=== PATIENT | female | born 1960 | race Caucasian/White ===

== ENCOUNTER → 2018-06-08 | Outpatient (CLI) | payer MEDICARE, OTHER ==
[~2018-06-08] MED LIST: ALBU90OI INH; ALBU90OI6 INH; AMLO5 PO; ASCO500 PO; BENADRYL25 MG PO; Bactrim Ds Tab1 EACH PO; CERAVE MOISTUR; CHOL10002 PO; COLLP MISC; DILT180 PO; DIPATR PO; DIPH50 PO; ESTROVEN ENER PO; FEXO60 PO; FEXPSEER PO; Flovent Disku250 MCG IH; Iron Supplemen325 MG PO; LEVFLO500 PO; LEVO750 PO; LISI20 PO; LISI5 PO; MAGOXI400 PO; MONT10T PO; MULVITMIND PO; MUPI2TO TOP; NAPR500 PO; Omeprazole20 M1 PO; PROM25 PO; Prednisone20 MG PO; RANI150 PO; TRIA80TC TOP
== END | disposition home or self-care (01) ==
LOC: LAB SHORT 14:41 → PLD 14:41
DX: L72.11 Pilar cyst (principal); L72.0 Epidermal cyst
CPT/HCPCS: 88304